=== PATIENT | female | born 1980 | race African-American/Black ===

== ENCOUNTER 2018-07-24 12:26 | Emergency (ER) | payer BC ==
--- NOTE | 2018-07-24 14:17 | ER Document Report ---
ED Medical Screen (RME) - General Chief Complaint: Weakness Stated Complaint: ABNORMAL LABS Time Seen by Provider: 07/24/18 14:08 Notes: Patient is a 38-year-old female with history of anemia that presents to the emergency department for chief complaint of generalized fatigue. Patient states that she is felt more fatigued the last several months, she has a history of requiring blood transfusion last was in 2014, and she wanted to be evaluated for why she is feeling the way she is, she does not have a primary care. ROS: Other than noted above, the 12 point review of systems was reviewed with the patient and were negative, all pertinent findings are included in the HPI. PHYSICAL EXAMINATION: Vital signs reviewed. GENERAL: Well-appearing, well-nourished and in no acute distress. HEAD: Atraumatic, normocephalic. EYES: Pupils equal round extraocular movements intact, conjunctiva are normal. ENT: Nares patent NECK: Normal range of motion CV: Heart regular rate and rhythm LUNGS: No respiratory distress Musculoskeletal: Normal range of motion NEUROLOGICAL: Normal speech PSYCH: Normal mood, normal affect. MDM: Patient seen and examined for rapid initial assessment. Vital signs reviewed. A comprehensive ED assessment and evaluation of the patient, analysis of test results and completion of the medical decision making process will be conducted by additional ED providers. *Note is created using voice recognition software and may contain spelling, syntax or grammatical errors. TRAVEL OUTSIDE OF THE [place] IN LAST 30 DAYS: No - Related Data Allergies/Adverse Reactions: Latex, Natural Rubber Allergy (Verified 07/24/18 12:58) Past Medical History - Social History Chew tobacco use (# tins/day): No Frequency of alcohol use: None Drug Abuse: None Renal/ Medical History: Denies: Hx Peritoneal Dialysis Physical Exam - Vital signs Vitals: Temp Pulse Resp BP Pulse Ox 98.7 F 104 H 18 203/117 H 100 07/24/18 13:04 07/24/18 13:04 07/24/18 13:04 07/24/18 13:04 07/24/18 13:04 Course - Vital Signs Vital signs: Temp Pulse Resp BP Pulse Ox 98.7 F 104 H 18 203/117 H 100 07/24/18 13:04 07/24/18 13:04 07/24/18 13:04 07/24/18 13:04 07/24/18 13:04
[2018-07-24 16:46] LABS: ALANINE AMINOTRANSFERASE 14 U/L (9-52); ALKALINE PHOSPHATASE 115 U/L (38-126); ANION GAP 10 (5-19); ASPARTATE AMINO TRANSFERASE 23 U/L (14-36); BILIRUBIN,DIRECT 0.3 mg/dL (0.0-0.4); BILIRUBIN,TOTAL 0.5 mg/dL (0.2-1.3); BLOOD UREA NITROGEN 7 mg/dL (7-20); CALCIUM 9.6 mg/dL (8.4-10.2); CARBON DIOXIDE 24 mmol/L (22-30); CHLORIDE 104 mmol/L (98-107); GLUCOSE 90 mg/dL (75-110); POTASSIUM 3.9 mmol/L (3.6-5.0); SODIUM 137.5 mmol/L (137-145); TOTAL PROTEIN 7.7 g/dL (6.3-8.2)
[2018-07-24 17:07] LABS: FREE T4 (FREE THYROXINE) 0.94 ng/dL (0.78-2.19)
[2018-07-24 17:21] LABS: THYROID STIMULATING HORMONE 0.64 uIU/mL (0.47-4.68)
[2018-07-24 18:00] LABS: APPEARANCE,URINE CLOUDY; BILIRUBIN,URINE NEGATIVE (NEGATIVE); COLOR,URINE YELLOW; GLUCOSE, URINE NEGATIVE (NEGATIVE); KETONES,URINE NEGATIVE (NEGATIVE); LEUKOCYTE ESTERASE,URINE TRACE (NEGATIVE); NITRITE,URINE NEGATIVE (NEGATIVE); PROTEIN,URINE NEGATIVE (NEGATIVE); URINE SPECIFIC GRAVITY 1.015; UROBILINOGEN,URINE NEGATIVE mg/dL (<2.0)
--- NOTE | 2018-07-24 18:01 | ER Document Report ---
ED General - General Chief Complaint: Weakness Stated Complaint: ABNORMAL LABS Time Seen by Provider: 07/24/18 14:08 Notes: Patient is a 38-year-old female with history of anemia that presents to the emergency department for chief complaint of generalized fatigue. Patient states that she is felt more fatigued the last several months, she has a history of requiring blood transfusion in 2014, and she wanted to be evaluated for why she is feeling the way she is. She states that she just feels "a little off ". She denies dizziness, lightheadedness, nausea, vomiting, diarrhea. She denies shortness of breath, heart palpitations, chest pain. She has no other symptoms. She does not have a primary care. TRAVEL OUTSIDE OF THE [place] IN LAST 30 DAYS: No - Related Data Allergies/Adverse Reactions: Latex, Natural Rubber Allergy (Verified 07/24/18 12:58) Past Medical History - Social History Smoking Status: Never Smoker Chew tobacco use (# tins/day): No Frequency of alcohol use: None Drug Abuse: None Family History: None Patient has suicidal ideation: No Patient has homicidal ideation: No Renal/ Medical History: Denies: Hx Peritoneal Dialysis Review of Systems - Review of Systems Constitutional: See HPI EENT: No symptoms reported Cardiovascular: See HPI Respiratory: See HPI Gastrointestinal: See HPI Genitourinary: No symptoms reported Female Genitourinary: No symptoms reported Musculoskeletal: No symptoms reported Skin: No symptoms reported Hematologic/Lymphatic: No symptoms reported Neurological/Psychological: See HPI Physical Exam - Vital signs Vitals: Temp Pulse Resp BP Pulse Ox 98.7 F 104 H 18 203/117 H 100 07/24/18 13:04 07/24/18 13:04 07/24/18 13:04 07/24/18 13:04 07/24/18 13:04 - Notes Notes: PHYSICAL EXAMINATION: Reviewed vital signs and charting by RN GENERAL: Alert, interacts well. No acute distress. HEAD: Normocephalic, atraumatic. EYES: Pupils equal, round. Extraocular movements intact. ENT: Oral mucosa moist, tongue midline. NECK: Full range of motion. Supple. Trachea midline. LUNGS: Clear to auscultation bilaterally, no wheezes, rales, or rhonchi. No respiratory distress. HEART: Regular rate and rhythm. No murmur ABDOMEN: soft, non-tender. Non-distended. Bowel sounds present in all 4 quadrants. no McBurney's point tenderness, no Raphael sign. EXTREMITIES: Moves all 4 extremities spontaneously. No edema, No cyanosis. NEUROLOGICAL: Alert and oriented x3. Normal speech. PSYCH: Normal affect, normal mood. SKIN: Warm, dry, normal turgor. No rashes or lesions noted. Mucous membranes are not pale. Course - Re-evaluation Re-evalutation: 07/24/18 18:03 Overall very well-appearing no clinical signs of anemia. Her heart rate was 102 and she is in no distress. Blood work is still pending. 07/24/18 20:23 CBC completed patient with very mildl microcytic anemia. Clinically she appears well and I have no concerns at this time that she will decompensate. I will t ell her what the values are and give her a referral. 07/24/18 20:45 Upon discharge patient's blood pressure was 159/116. Patient states that she does have known hypertension and prior to her last she was on lisinopril which did not know the dose. I discussed with nurse and we will give her lisinopril 10 mg 1 time here and I will send her home on a 2-week prescription for that to bridge her until she can see primary care. She is completely asymptomatic at this time. 07/24/18 21:29 - Vital Signs Vital signs: Temp Pulse Resp BP Pulse Ox 97.5 F 94 16 159/116 H 100 07/24/18 20:34 07/24/18 20:34 07/24/18 20:34 07/24/18 20:34 07/24/18 20:34 - Laboratory Result Diagrams: 07/24/18 19:45 07/24/18 14:52 Laboratory results interpreted by me: 07/24/18 07/24/18 14:52 19:45 Hgb 10.9 L Hct 33.8 L MCV 79 L MCH 25.4 L RDW 19.3 H Ur Leukocyte Esterase TRACE H Discharge - Discharge Clinical Impression: Microcytic anemia Condition: Good Disposition: HOME, SELF-CARE Instructions: Anemia (OM) Additional Instructions: You were seen in the emergency department this evening for concern for abnormal blood work. Your labs showed that you do have a very mild anemia and everything else was very reassuring. At this time there is no dangerous condition that would warrant keeping you in the hospital. If you do become very lightheaded or pass out, become dizzy, you have severe weakness, cannot focus, it could be that your anemia is getting worse and you should come to the emergency department. Otherwise, is important to establish primary care and do further outpatient lab testing to determine the cause of the anemia. Prescriptions: RX: Lisinopril [Prinivil 10 mg Tablet] 10 mg PO DAILY #30 tablet
[2018-07-24 19:56] LABS: ABSOLUTE EOSINOPHILS # (AUTO) 0.1 10^3/uL (0.0-0.6); ABSOLUTE LYMPHOCYTES (AUTO) 1.6 10^3/uL (0.5-4.7); ABSOLUTE MONOCYTES (AUTO) 0.4 10^3/uL (0.1-1.4); ABSOLUTE NEUT (AUTO) 4.2 10^3/uL (1.7-8.2); BASOPHILS % (AUTO) 0.4 % (0-2); EOSINOPHILS % (AUTO) 2.2 % (0-6); HEMATOCRIT 33.8 % (36.0-47.0); HEMOGLOBIN 10.9 g/dL (12.0-15.5); LYMPHOCYTES % (AUTO) 25.6 % (13-45); MEAN CORPUSCULAR HEMOGLOBIN 25.4 pg (27.0-33.4); MEAN CORPUSCULAR HGB CONC 32.3 g/dL (32.0-36.0); MEAN CORPUSCULAR VOLUME 79 fl (80-97); MONOCYTES % (AUTO) 6.8 % (3-13); PLATELET COUNT 258 10^3/uL (150-450); RED BLOOD COUNT 4.29 10^6/uL (3.72-5.28); RED CELL DISTRIBUTION WIDTH 19.3 % (11.5-14.0); TOTAL CELLS COUNTED % (AUTO) 100 %; WHITE BLOOD COUNT 6.4 10^3/uL (4.0-10.5)
[2018-07-24 20:35] VITALS: BP 159/116
[2018-07-24] MEDS ORDERED: LISINOPRIL 10 MG TABLET PO ONE (20:46)
--- NOTE | 2018-07-25 09:20 | ER Document Report ---
Doctor's Note Notes: I personally and independently obtained patient history and examined the patient in conjunction with the APC and agree with the assessment, treatment plan and disposition of the patient as recorded by the APC, and have reviewed the APC's note. HISTORY OF PRESENT ILLNESS: Patient is a 38-year-old female with history of anemia that presents to the emergency department for chief complaint of generalized weakness and fatigue. Patient states that she is been feeling more weak over the past several weeks, and wanted to come to the hospital to be evaluated today, and have blood work drawn, she states that she is needed blood transfusions in the past last time was in 2015. She also reports that she was on blood pressure medication, but has not taken some in some time. She does not currently have a primary care physician. She denies having any significant pain at this time. ROS: Constitutional: Negative for fever. Cardiovascular: Negative for chest pain. Respiratory: Negative for shortness of breath. Gastrointestinal: Negative for vomiting or abdominal pain Musculoskeletal: Negative for arm, leg or back pain Skin: Negative for rash. Neurological: Positive for generalized weakness and fatigue Other than noted above, the 12 point review of systems was reviewed with the patient and were negative, all pertinent findings are included in the HPI. PHYSICAL EXAMINATION: Vital signs reviewed, nursing noted reviewed. GENERAL: Well-appearing, well-nourished and in no acute distress. HEAD: Atraumatic, normocephalic. EYES: Eyes appear normal, conjunctiva are normal. ENT: nares patent, oropharynx clear without exudates. Moist mucous membranes. NECK: Normal range of motion, supple without lymphadenopathy LUNGS: Breath sounds clear to auscultation bilaterally and equal. No wheezes rales or rhonchi. HEART: Regular rate and rhythm without murmurs ABDOMEN: Soft, nontender, normoactive bowel sounds. No rebound, guarding, or rigidity. No masses appreciated. EXTREMITIES: Nontender, good range of motion, no pitting or edema. NEUROLOGICAL: No focal neurological deficits. Moves all extremities s pontaneously Motor and sensory grossly intact on exam. PSYCH: Normal mood, normal affect. SKIN: Warm, Dry, normal turgor, no rashes or lesions noted on exposed skin, no pallor noted MEDICAL DECISION MAKING: Patient seen and examined, vital signs reviewed, patient's blood pressure was noted to be elevated, her heart rate was mildly elevated on presentation, in triage, however on my exam, the patient's pulse was normal and around 86 bpm, patient overall appeared well, blood work was ordered including CBC, CMP, TSH, this testing was unremarkable, she had a mild microcytic anemia, was encouraged follow-up, discussed starting her on lisinopril low-dose, and having her follow- up with primary care which the patient was agreeable to. Please review detail APC documentation. *Note is created using voice recognition software and may contain spelling, syntax or grammatical errors. Laboratory 07/24/18 07/24/18 07/24/18 14:52 14:52 14:52 WBC Cancelled RBC Cancelled Hgb Cancelled Hct Cancelled MCV Cancelled MCH Cancelled MCHC Cancelled RDW Cancelled Plt Count Cancelled Seg Neutrophils % Cancelled Lymphocytes % Cancelled Monocytes % Cancelled Eosinophils % Cancelled Basophils % Cancelled Absolute Neutrophils Cancelled Absolute Lymphocytes Cancelled Absolute Monocytes Cancelled Absolute Eosinophils Cancelled Absolute Basophils Cancelled Platelet Estimate Cancelled Sodium 137.5 Potassium 3.9 Chloride 104 Carbon Dioxide 24 Anion Gap 10 BUN 7 Creatinine 0.56 Est GFR ( Amer) > 60 Est GFR (Non-Af Amer) > 60 Glucose 90 Calcium 9.6 Total Bilirubin 0.5 Direct Bilirubin 0.3 Neonat Total Bilirubin Not Reportable Neonat Direct Bilirubin Not Reportable Neonat Indirect Bili Not Reportable AST 23 ALT 14 Alkaline Phosphatase 115 Total Protein 7.7 Albumin 4.0 TSH 0.64 Free T4 0.94 Urine Color Urine Appearance Urine pH Ur Specific [place] Urine Protein Urine Glucose (UA) Urine Ketones Urine Blood Urine Nitrite Urine Bilirubin Urine Urobilinogen Ur Leukocyte Esterase Urine WBC (Auto) Urine RBC (Auto) U Hyaline Cast (Auto) Urine Bacteria (Auto) Urine Red Cell Clumps Urine WBC Clumps Squamous Epi Cells Auto U Non-Squamous Epis Auto Calcium Carbonate Cryst Calcium Phosphate Cryst Calcium Oxalate Cr Auto Leucine Crystals Cystine Crystals Uric Acid Cryst (Auto) Triple Phos Cryst (Auto) Tyrosine Crystals Amorphous Sediment Auto Cellular Casts Epithelial Casts (Auto) Fatty Casts Granular Casts (Auto) Waxy Casts (Auto) Broad Casts RBC Casts (Auto) WBC Casts (Auto) Urine Mucus (Auto) U Trichomonas (Auto) Ur Yeast w Hyphae Urine Yeast (Budding) Urine Ascorbic Acid Urine HCG, Qual Slides for Path Review Cancelled Blood Type Antibody Screen 07/24/18 07/24/18 07/24/18 14:52 14:52 14:52 WBC RBC Hgb Hct MCV MCH MCHC RDW Plt Count Seg Neutrophils % Lymphocytes % Monocytes % Eosinophils % Basophils % Absolute Neutrophils Absolute Lymphocytes Absolute Monocytes Absolute Eosinophils Absolute Basophils Platelet Estimate Sodium Potassium Chloride Carbon Dioxide Anion Gap BUN Creatinine Est GFR ( Amer) Est GFR (Non-Af Amer) Glucose Calcium Total Bilirubin Direct Bilirubin Neonat Total Bilirubin Neonat Direct Bilirubin Neonat Indirect Bili AST ALT Alkaline Phosphatase Total Protein Albumin TSH Free T4 Urine Color YELLOW Cancelled Urine Appearance CLOUDY Cancelled Urine pH 6.0 Cancelled Ur Specific [place] 1.015 Cancelled Urine Protein NEGATIVE Cancelled Urine Glucose (UA) NEGATIVE Cancelled Urine Ketones NEGATIVE Cancelled Urine Blood NEGATIVE Cancelled Urine Nitrite NEGATIVE Cancelled Urine Bilirubin NEGATIVE Cancelled Urine Urobilinogen NEGATIVE Cancelled Ur Leukocyte Esterase TRACE H Cancelled Urine WBC (Auto) 2 Cancelled Urine RBC (Auto) 6 Cancelled U Hyaline Cast (Auto) Cancelled Urine Bacteria (Auto) Cancelled Urine Red Cell Clumps Cancelled Urine WBC Clumps Cancelled Squamous Epi Cells Auto 19 Cancelled U Non-Squamous Epis Auto Cancelled Calcium Carbonate Cryst Cancelled Calcium Phosphate Cryst Cancelled Calcium Oxalate Cr Auto Cancelled Leucine Crystals Cancelled Cystine Crystals Cancelled Uric Acid Cryst (Auto) Cancelled Triple Phos Cryst (Auto) Cancelled Tyrosine Crystals Cancelled Amorphous Sediment Auto Cancelled Cellular Casts Cancelled Epithelial Casts (Auto) Cancelled Fatty Casts Cancelled Granular Casts (Auto) Cancelled Waxy Casts (Auto) Cancelled Broad Casts Cancelled RBC Casts (Auto) Cancelled WBC Casts (Auto) Cancelled Urine Mucus (Auto) RARE Cancelled U Trichomonas (Auto) Cancelled Ur Yeast w Hyphae Cancelled Urine Yeast (Budding) Cancelled Urine Ascorbic Acid NEGATIVE Cancelled Urine HCG, Qual NEGATIVE Slides for Path Review Blood Type O POSITIVE Antibody Screen NEGATIVE 07/24/18 19:45 WBC 6.4 RBC 4.29 Hgb 10.9 L Hct 33.8 L MCV 79 L MCH 25.4 L MCHC 32.3 RDW 19.3 H Plt Count 258 Seg Neutrophils % 65.0 Lymphocytes % 25.6 Monocytes % 6.8 Eosinophils % 2.2 Basophils % 0.4 Absolute Neutrophils 4.2 Absolute Lymphocytes 1.6 Absolute Monocytes 0.4 Absolute Eosinophils 0.1 Absolute Basophils 0.0 Platelet Estimate Sodium Potassium Chloride Carbon Dioxide Anion Gap BUN Creatinine Est GFR ( Amer) Est GFR (Non-Af Amer) Glucose Calcium Total Bilirubin Direct Bilirubin Neonat Total Bilirubin Neonat Direct Bilirubin Neonat Indirect Bili AST ALT Alkaline Phosphatase Total Protein Albumin TSH Free T4 Urine Color Urine Appearance Urine pH Ur Specific [place] Urine Protein Urine Glucose (UA) Urine Ketones Urine Blood Urine Nitrite Urine Bilirubin Urine Urobilinogen Ur Leukocyte Esterase Urine WBC (Auto) Urine RBC (Auto) U Hyaline Cast (Auto) Urine Bacteria (Auto) Urine Red Cell Clumps Urine WBC Clumps Squamous Epi Cells Auto U Non-Squamous Epis Auto Calcium Carbonate Cryst Calcium Phosphate Cryst Calcium Oxalate Cr Auto Leucine Crystals Cystine Crystals Uric Acid Cryst (Auto) Triple Phos Cryst (Auto) Tyrosine Crystals Amorphous Sediment Auto Cellular Casts Epithelial Casts (Auto) Fatty Casts Granular Casts (Auto) Waxy Casts (Auto) Broad Casts RBC Casts (Auto) WBC Casts (Auto) Urine Mucus (Auto) U Trichomonas (Auto) Ur Yeast w Hyphae Urine Yeast (Budding) Urine Ascorbic Acid Urine HCG, Qual Slides for Path Review Blood Type Antibody Screen
== END 2018-07-24 21:10 | disposition home or self-care (01) ==
LOC: ER 12:26
DX: D50.9 Iron deficiency anemia, unspecified (principal); R53.1 Weakness; R53.83 Other fatigue; Z79.899 Other long term (current) drug therapy
CPT/HCPCS: 36415; 80053; 81001; 81025; 84439; 84443; 85025; 86850; 86900; 86901; 99284